=== PATIENT | female | born 1975 | race Caucasian/White ===

== ENCOUNTER 2016-06-05 09:04 | Emergency (ER) | payer SELFPAY ==
--- NOTE | 2016-06-05 09:46 | Emergency Department Report ---
Entered by TRACY MARTINS, acting as scribe for NIC BARRAZA PA. Chief Complaint: Abdominal Pain Stated Complaint: ABD PAIN - HPI History of Present Illness: Patient presents to the ED c/o RUQ pain, nausea, and vomiting. Denies diarrhea and back pain. Took Nexium. - ROS Review of Systems: All system are negative unless stated in HPI above. - Exam Vital Signs: Vital Signs 06/05/16 09:16 Temperature 97.7 F Pulse Rate 74 Respiratory 20 Rate Blood Pressure 115/67 O2 Sat by Pulse 100 Oximetry Physical Exam: General: well nourished, well deverloped, nontoxic in appearance, in no acute distress Abdomen: Normal bowel sounds in all quadrants. Soft. TTP in RUQ to epigastric area Back:no CVA tenderness MSE screening note: Focused history and physical exam performed. Due to findings the following was ordered: ED Medical Decision Making - Medical Decision Making Medical decision making: Patient seen by provider in triage area. Appropriate protocol activated and patient to main ED to be seen by ED provider ED Disposition for MSE Condition: Stable Instructions: Abdominal Pain (ED) This documentation as recorded by the scribe,TRACY MARTINS,accurately reflects the service I personally performed and the decisions made by me,NIC BARRAZA PA.
[2016-06-05 10:15] LABS: Alanine Aminotransferase 49 units/L (7-56); Albumin/Globulin Ratio 1.3 %; Alkaline Phosphatase 95 units/L (35-129); Anion Gap 15 mmol/L; Bilirubin,Total 0.5 mg/dL (0.1-1.2); Blood Urea Nitrogen 12 mg/dL (7-17); Calcium 8.8 mg/dL (8.4-10.2); Carbon Dioxide 25 mmol/L (22-30); Chloride 100.8 mmol/L (98-107); Glucose 93 mg/dL (65-100); Lipase 36 units/L (13-60); Potassium 3.4 mmol/L (3.6-5.0); Sodium 137 mmol/L (137-145); Total Protein 7.1 g/dL (6.3-8.2)
[2016-06-05 10:36] LABS: Basophils % (Auto) 0.3 % (0.0-1.8); Eosinophils % (Auto) 0.5 % (0.0-4.3); Hemoglobin 13.1 gm/dl (10.1-14.3); Mean Corpuscular HGB Conc 33 % (30-34); Mean Corpuscular Hemoglobin 29 pg (28-32); Mean Corpuscular Volume 88 fl (79-97); Platelet Count 286 K/mm3 (140-440); Red Blood Count 4.52 M/mm3 (3.65-5.03); Red Cell Distribution Width 13.7 % (13.2-15.2); White Blood Count 10.1 K/mm3 (4.5-11.0)
[2016-06-05] MEDS ORDERED: NACL 0.9% 1000 ML 1,000 ML IV ONE (10:43)
[2016-06-05] MEDS ORDERED: MORPHINE IV ONE ×2 (10:43→12:49)
[2016-06-05] MEDS ORDERED: ZOFRAN IV ONE (10:43)
[2016-06-05 10:46] LABS: Bacteria,Urine 1+ /HPF (Negative); Bilirubin,Urine NEG (Negative); Blood,Urine NEG (Negative); Ketones,Urine NEG (Negative); Leukocyte Esterase,Urine NEG (Negative); Mucus,Urine 1+ /HPF; Nitrite,Urine NEG (Negative); Protein,Urine <15 mg/dL mg/dL (Negative); Urobilinogen,Urine < 2.0 mg/dL (<2.0)
--- NOTE | 2016-06-05 10:47 | Emergency Department Report ---
ED Abdominal Pain HPI - General Chief Complaint: Abdominal Pain Stated Complaint: ABD PAIN Time Seen by Provider: 06/05/16 09:30 Source: patient Mode of arrival: Ambulatory Limitations: No Limitations - History of Present Illness Initial Comments: 41-year-old female presents to the emergency department complaining of right upper abdominal pain. Patient states she has been having this pain intermittently for over one month. Over the past 3 days, the pain has been constant. Patient describes a "deep" pain in her upper abdomen that does not radiate. She reports nausea and vomiting when trying to eat. There has been no fever. She denies diarrhea. There are no other complaints. MD Complaint: abdominal pain -: Gradual, days(s) (3) Location: RUQ Radiation: none Migration to: no migration Severity: moderate Severity scale (0 -10): 6 Quality: dull Consistency: constant Improves With: nothing Worsens With: nothing Associated Symptoms: nausea, vomiting - Related Data Previous Rx's Medication Instructions Recorded Last Taken Type HYDROcodone/APAP 5-325 [[place] 1 each PO Q6HR PRN #30 tablet 06/05/16 Unknown Rx 5/325] Levofloxacin [Levaquin TAB] 500 mg PO QDAY #10 tablet 06/05/16 Unknown Rx Allergies Allergy/AdvReac Type Severity Reaction Status Date / Time No Known Allergies Allergy Unverified 06/05/16 09:16 ED Review of Systems ROS: Stated complaint: ABD PAIN Other details as noted in HPI Comment: All other systems reviewed and negative Gastrointestinal: abdominal pain, nausea, vomiting ED Past Medical Hx - Past Medical History Previous Medical History?: Yes Additional medical history: Vaginal delivery x 1 - Surgical History Past Surgical History?: Yes Additional Surgical History: x 1, Tubal ligation - Family History Family history: no significant - Social History Smoking Status: Never Smoker Substance Use Type: Non Opiate Pain - Medications Home Medications: Home Medications Medication Instructions Recorded Confirmed Last Taken Type HYDROcodone/APAP 5-325 [[place] 1 each PO Q6HR PRN #30 tablet 06/05/16 Unknown Rx 5/325] Levofloxacin [Levaquin TAB] 500 mg PO QDAY #10 tablet 06/05/16 Unknown Rx ED Physical Exam - General Limitations: No Limitations General appearance: alert, in no apparent distress - Head Head exam: Present: atraumatic, normocephalic - Eye Eye exam: Present: normal appearance, PERRL, EOMI - ENT ENT exam: Present: normal exam, normal orophraynx, mucous membranes moist - Neck Neck exam: Present: normal inspection, full ROM. Absent: tenderness - Respiratory Respiratory exam: Present: normal lung sounds bilaterally. Absent: respiratory distress - Cardiovascular Cardiovascular Exam: Present: regular rate, normal rhythm, normal heart sounds - GI/Abdominal GI/Abdominal exam: Present: soft, tenderness (mild right upper quadrant tenderness to palpation with deep palpation.), normal bowel sounds. Absent: distended, guarding, rebound - Extremities Exam Extremities exam: Present: normal inspection, full ROM. Absent: tenderness - Back Exam Back exam: Present: normal inspection, full ROM. Absent: tenderness - Neurological Exam Neurological exam: Present: alert, oriented X3. Absent: motor sensory deficit - Skin Skin exam: Present: warm, dry, intact ED Course Vital Signs 06/05/16 09:16 Temperature 97.7 F Pulse Rate 74 Respiratory 20 Rate Blood Pressure 115/67 O2 Sat by Pulse 100 Oximetry ED Medical Decision Making - Lab Data Result diagrams: 06/05/16 09:31 06/05/16 09:31 - Radiology Data Radiology results: report reviewed Right upper quadrant ultrasound reveals cholelithiasis with gallbladder sludge. There are no other acute findings. - Medical Decision Making Lab and imaging results reviewed and discussed with the patient. I have also spoke with Dr. Raphael, general surgery. At his request, the patient will be placed on oral Levaquin. She'll be discharged home at this time with oral pain medication to follow-up in his office later this week. Plan was discussed with the patient, who agrees. - Differential Diagnosis gastritis, pancreatitis, cholecystitis, cholelithiasis Critical care attestation.: If time is entered above; I have spent that time in minutes in the direct care of this critically ill patient, excluding procedure time. ED Disposition Clinical Impression: Cholelithiasis Qualifiers: Cholelithiasis location: gallbladder Cholecystitis presence: without cholecystitis Biliary obstruction: without biliary obstruction Qualified Code(s) : K80.20 - Calculus of gallbladder without cholecystitis without obstruction Disposition: DISCHARGED TO HOME OR SELFCARE Is pt being admited?: No Condition: Stable Instructions: Biliary Colic (ED) Prescriptions: HYDROcodone/APAP 5-325 [[place] 5/325] 1 each PO Q6HR PRN #30 tablet PRN Reason: Pain Levofloxacin [Levaquin TAB] 500 mg PO QDAY #10 tablet Referrals: TIM RAPHAEL MD [Staff Physician] - 3-5 Days Time of Disposition: 12:52
--- NOTE | 2016-06-05 12:22 | Ultrasound Report ---
ULTRASOUND ABDOMEN LIMITED INDICATION: RUQ pain. COMPARISON: None similar at this institution. FINDINGS: Right upper quadrant sonography demonstrates diffusely echogenic liver with grossly preserved contours. Limited sonographic penetration. No pericholecystic fluid with gallbladder wall thickness of 2.7 mm. However, few small, shadowing echogenicities measuring 6-7 mm noted towards the gallbladder fundus. Mild gallbladder sludge and mobile gallstones also not excluded as on image 64, amongst others. Positive sonographic Patiño's sign. Common bile duct is 4 mm. Normal imaged pancreas, though tail obscured due to bowel gas. Unremarkable visualized IVC and nonaneurysmal abdominal aorta. Nonhydronephrotic right kidney, 10.7 x 4.5 x 5.4 cm with cortical thickness of 1.3 cm. CONCLUSION: 1. Cholelithiasis and possible gallbladder sludge with positive sonographic Patiño's sign. Clinical/laboratory correlation for acute cholecystitis maybe obtained in an appropriate setting. 2. Fatty liver. Thank you for the opportunity to participate in this patient's care.
[2016-06-05] MEDS ORDERED: ZOFRAN ODT PO ONE (14:43)
[2016-06-05 15:28] VITALS: BP 123/59
== END 2016-06-05 15:29 | disposition home or self-care (01) ==
LOC: ED 09:04
DX: K80.20 Calculus of gallbladder without cholecystitis without obstruction (principal); Z98.51 Tubal ligation status
CPT/HCPCS: 36415; 76705; 80053; 81001; 81025; 83690; 85025; 96361; 96374; 96375; 96376; 99284; J2270; J2405; J7030; Q0162

== ENCOUNTER 2016-06-06 00:59 | Inpatient (IN) | payer OTHER ==
[2016-06-06] MEDS ORDERED: NACL 0.9% 1000 ML 1,000 ML IV ONE (06:23)
[2016-06-06] MEDS ORDERED: MORPHINE IV ONE ×2 (06:23→08:20)
[2016-06-06] MEDS ORDERED: ZOFRAN IV ONE (06:23)
[2016-06-06 07:28] LABS: Basophils % (Auto) 0.4 % (0.0-1.8); Eosinophils % (Auto) 0.3 % (0.0-4.3); Hematocrit 38.2 % (30.3-42.9); Hemoglobin 12.6 gm/dl (10.1-14.3); Mean Corpuscular HGB Conc 33 % (30-34); Mean Corpuscular Hemoglobin 29 pg (28-32); Mean Corpuscular Volume 88 fl (79-97); Platelet Count 274 K/mm3 (140-440); Red Blood Count 4.36 M/mm3 (3.65-5.03); Red Cell Distribution Width 13.9 % (13.2-15.2); White Blood Count 7.2 K/mm3 (4.5-11.0)
[2016-06-06 07:45] LABS: Alanine Aminotransferase 613 units/L (7-56); Albumin 3.9 g/dL (3.9-5); Albumin/Globulin Ratio 1.2 %; Alkaline Phosphatase 174 units/L (35-129); Anion Gap 16 mmol/L; Bilirubin,Direct 2.4 mg/dL (0-0.2); Bilirubin,Indirect 0.6 mg/dL; Blood Urea Nitrogen 8 mg/dL (7-17); Calcium 8.8 mg/dL (8.4-10.2); Carbon Dioxide 24 mmol/L (22-30); Chloride 102.8 mmol/L (98-107); Glucose 90 mg/dL (65-100); Lipase 36 units/L (13-60); Sodium 139 mmol/L (137-145); Total Protein 7.1 g/dL (6.3-8.2)
--- NOTE | 2016-06-06 08:29 | Admit Criteria Form ---
Admission Criteria Documentation: GALLBLADDER OR BILE DUCT INFLAMMATION OR STONE Clinical Indications for Admission to Inpatient Care ( Place 'X' for any and all applicable criteria): Admission is indicated for patients with ANY ONE of the following(1)(2)(3)(4)(5) : [ ]I. Acute cholecystitis as indicated by ALL of the following: [ ]a) Right upper quadrant pain, mass, or tenderness [ ]b) Systemic signs of inflammation indicated by ANY ONE of the following: [ ]i) Fever [ ]ii) C-reactive protein level greater than 10 mg/L (95 nmol/L) [ ]iii) White blood cell count greater than 10,000/mm3 (10 x109/L) or less than 4000/mm3 (4 x109/L) [X ]II. Inpatient admission required rather than observation care (Also use Gallbladder or Bile Duct Inflammation or Stone: Observation Care as appropriate) because of ANY ONE of the following: [ ]a) Common bile duct obstruction diagnosed [X ]b) Vomiting that is severe or persistent [ ]c) Severe pain requiring acute inpatient management [ ]d) Signs of intestinal obstruction or peritonitis [A] [ ]e) Severe electrolyte abnormalities requiring inpatient care [ ]f) Absent bowel sounds with complete ileus(8) [ ]g) Hemodynamic instability [ ]h) High fever or infection requiring inpatient admission as indicated by ANY ONE of the following (9): [ ]1) Appropriate outpatient or observation care antimicrobial Treatment. unavailable, not effective, or not feasible [ ]2) Temperature greater than 104.9 degrees F (40.5 degrees C) (oral) [ ]3) Temperature greater than 103.1 degrees F (39.5 degrees C) (oral) or less than 96.8 degrees F (36 degrees C) (rectal) that does not respond to all emergency treatment measures [ ]4) Documented bacteremia [ ]i) IV fluid to replace significant ongoing losses (greater than 3 L/m2 per day) [ ]j) Percutaneous or open drainage (eg, abscess, biliary tract) procedures [ ]k) Immediate inpatient surgery [ ]l) Other condition, treatment or monitoring requiring inpatient admission [ ]III. Acute cholangitis as indicated by ALL of the following(9)(10): [ ]a) Systemic signs of inflammation indicated by ANY ONE of the following: [ ]i) Fever [ ]ii) C-reactive protein level greater than 10 mg/L (95 nmol /L) [ ]iii) White blood cell count greater than 10,000/mm3 (10 x109/L) or less than 4000/mm3 (4 x109/L) [ ]b) Evidence of common bile duct disease indicated by ANY ONE of the following: [ ]i) Total serum bilirubin level greater than or equal to 2 mg/dL (34 micromoles/L) [ ]ii) Liver function test (alkaline phosphatase (ALP), r- glutamyltransferase (GGT), aspartate aminotransferase (AST), or alanine aminotransferase (ALT)) greater than 1.5 times the upper limit of normal[B] [ ]iii) Hepatobiliary imaging showing biliary dilatation or evidence of etiology (eg, stricture, stone, previously placed stent) Extended stay beyond goal length of stay may be needed for (1)(2)): [ ]a) Bacteremia or Hemodynamic instability [ ]b) Cholecystectomy [ ]c) Other surgical procedure(24) [ ]d) Percutaneous or endoscopic ultrasound-guided cholecystostomy The original [facility] content created by [facility] has been revised. The portions of the content which have been revised are identified through the use of italic text or in bold, and [facility] has neither reviewed nor approved the modified material. All other unmodified content is copyright [facility]. Please see references footnoted in the original [facility] edition 2016 Admission Criteria Met: Yes
--- NOTE | 2016-06-06 10:00 | Ultrasound Report ---
RIGHT UPPER QUADRANT ULTRASOUND: HISTORY: Right upper quadrant abdominal pain. Technique: Transabdominal ultrasound imaging with Doppler interrogation. FINDINGS: Compared to the ultrasound performed yesterday. A mild degree of sludge and a few shadowing gallstones are identified within the gallbladder. The gallbladder is not distended. Gallbladder wall thickness is normal measuring 2 mm. The common bile duct measures 5.5 mm in diameter. No choledocholithiasis is appreciated. Diffuse fatty infiltration of the liver is again noted. No focal liver mass or perihepatic ascites. The right kidney measures 10.1 cm. No focal abnormality. The proximal aorta is normal caliber measuring 1.8 cm. The pancreas is obscured. IMPRESSION: Cholelithiasis. No convincing secondary findings of acute cholecystitis. HIDA scan may prove useful in this patient if acute cholecystitis is suspected. Fatty liver.
--- NOTE | 2016-06-06 11:09 | Emergency Department Report ---
ED Abdominal Pain HPI - General Chief Complaint: Abdominal Pain Stated Complaint: STOMACH PAIN/VOMITING/FEVER Time Seen by Provider: 06/06/16 06:21 Source: patient Mode of arrival: Ambulatory Limitations: No Limitations - History of Present Illness Initial Comments: This is patient was seen at this facility yesterday. She has persistent right upper quadrant pain for the past few days. She is unable to eat secondary to vomiting. She denies fever or chills. She was diagnosed yesterday with biliary colic. MD Complaint: abdominal pain -: days(s) Location: RUQ Radiation: none Migration to: no migration Severity scale (0 -10): 6 Quality: aching Consistency: constant Improves With: nothing Worsens With: nothing Associated Symptoms: nausea, vomiting - Related Data Previous Rx's Medication Instructions Recorded Last Taken Type HYDROcodone/APAP 5-325 [[place] 1 each PO Q6HR PRN #30 tablet 06/05/16 Unknown Rx 5/325] Levofloxacin [Levaquin TAB] 500 mg PO QDAY #10 tablet 06/05/16 Unknown Rx Promethazine [Phenergan TAB] 25 mg PO Q6HR PRN #30 tab 06/05/16 Unknown Rx Allergies Allergy/AdvReac Type Severity Reaction Status Date / Time No Known Allergies Allergy Unverified 06/05/16 09:16 ED Review of Systems ROS: Stated complaint: STOMACH PAIN/VOMITING/FEVER Other details as noted in HPI Constitutional: denies: chills, fever Eyes: denies: eye pain, eye discharge, vision change ENT: denies: ear pain, throat pain Respiratory: denies: cough, shortness of breath, wheezing Cardiovascular: denies: chest pain, palpitations Endocrine: no symptoms reported Gastrointestinal: as per HPI, abdominal pain, nausea, vomiting. denies: diarrhea Genitourinary: denies: urgency, dysuria, discharge Musculoskeletal: denies: back pain, joint swelling, arthralgia Skin: denies: rash, lesions Neurological: denies: headache, weakness, paresthesias Psychiatric: denies: anxiety, depression Hematological/Lymphatic: denies: easy bleeding, easy bruising ED Past Medical Hx - Past Medical History Previous Medical History?: No Additional medical history: Vaginal delivery x 1 - Surgical History Past Surgical History?: Yes Additional Surgical History: x 1, Tubal ligation - Social History Smoking Status: Never Smoker Substance Use Type: None - Medications Home Medications: Home Medications Medication Instructions Recorded Confirmed Last Taken Type HYDROcodone/APAP 5-325 [[place] 1 each PO Q6HR PRN #30 tablet 06/05/16 06/06/16 Unknown Rx 5/325] Levofloxacin [Levaquin TAB] 500 mg PO QDAY #10 tablet 06/05/16 06/06/16 Unknown Rx Promethazine [Phenergan TAB] 25 mg PO Q6HR PRN #30 tab 06/05/16 06/06/16 Unknown Rx ED Physical Exam - General Limitations: No Limitations General appearance: alert, in no apparent distress - Head Head exam: Present: atraumatic, normocephalic - Eye Eye exam: Present: normal appearance - ENT ENT exam: Present: normal exam, mucous membranes moist - Neck Neck exam: Present: normal inspection - Respiratory Respiratory exam: Present: normal lung sounds bilaterally. Absent: respiratory distress - Cardiovascular Cardiovascular Exam: Present: regular rate, normal rhythm. Absent: systolic murmur, diastolic murmur, rubs, gallop - GI/Abdominal GI/Abdominal exam: Present: soft, tenderness (right upper quadrant), normal bowel sounds. Absent: distended, guarding, rebound, rigid, organomegaly, mass, bruit, pulsatile mass, hernia - Extremities Exam Extremities exam: Present: normal inspection - Back Exam Back exam: Present: normal inspection - Neurological Exam Neurological exam: Present: alert, oriented X3, CN II-XII intact. Absent: motor sensory deficit - Psychiatric Psychiatric exam: Present: normal affect, normal mood - Skin Skin exam: Present: warm, dry, intact, normal color. Absent: rash ED Course Vital Signs 06/06/16 06/06/16 06/06/16 01:12 04:33 06:39 Temperature 98.9 F 97.8 F Pulse Rate 18 L 60 Respiratory 18 18 Rate Blood Pressure 115/72 Blood Pressure 102/63 [Left] O2 Sat by Pulse 98 98 98 Oximetry 06/06/16 08:00 Temperature Pulse Rate 62 Respiratory 18 Rate Blood Pressure Blood Pressure 104/61 [Left] O2 Sat by Pulse 97 Oximetry - Reevaluation(s) Reevaluation #1: Discussed with Dr. [place]. Patient has been admitted for further care and evaluation and surgical consultation. 06/06/16 11:08 ED Medical Decision Making - Lab Data Result diagrams: 06/06/16 07:04 06/06/16 07:04 Laboratory Results - last 24 hr 06/06/16 06/06/16 07:04 07:04 WBC 7.2 RBC 4.36 Hgb 12.6 Hct 38.2 MCV 88 MCH 29 MCHC 33 RDW 13.9 Plt Count 274 Lymph % (Auto) 18.0 [place] % (Auto) 6.5 Eos % (Auto) 0.3 Baso % (Auto) 0.4 Lymph # 1.3 [place] # 0.5 Eos # 0.0 Baso # 0.0 Seg Neutrophils % 74.8 H Seg Neutrophils # 5.4 Sodium 139 Potassium 4.0 Chloride 102.8 Carbon Dioxide 24 Anion Gap 16 BUN 8 Creatinine 0.4 L Estimated GFR > 60 BUN/Creatinine Ratio 20.00 Glucose 90 Calcium 8.8 Total Bilirubin 3.0 H Direct Bilirubin 2.4 H Indirect Bilirubin 0.6 AST 671 H ALT 613 H Alkaline Phosphatase 174 H Total Protein 7.1 Albumin 3.9 Albumin/Globulin Ratio 1.2 Lipase 36 - Radiology Data Radiology results: report reviewed interpreted by me: Gallstones. CBD is 5.5. GB wall is 2. No evidence of cholecystitis. Critical care attestation.: If time is entered above; I have spent that time in minutes in the direct care of this critically ill patient, excluding procedure time. ED Disposition Clinical Impression: Biliary obstruction Cholelithiasis Qualifiers: Cholelithiasis location: gallbladder Cholecystitis presence: without cholecystitis Biliary obstruction: with biliary obstruction Qualified Code(s): K80.21 - Calculus of gallbladder without cholecystitis with obstruction Disposition: OP ADMITTED IP TO THIS HOSP Is pt being admited?: Yes Does the pt Need Aspirin: No Condition: Stable Instructions: Abdominal Pain (ED) Referrals: PRIMARY CARE, [Primary Care Provider] - 3-5 Days Time of Disposition: 11:09
[2016-06-06] MEDS ORDERED: MORPHINE IV PRN (15:46)
--- NOTE | 2016-06-06 16:08 | History and Physical Report ---
History of Present Illness Date of examination: 06/06/16 Date of admission: 06/06/16 11:03 Chief complaint: Abdominal pain, nausea and vomiting. 3 day duration History of present illness: Patient is a 41-year-old lady who presented emergency department with severe epigastric pain with nausea vomiting. Vomited about 10 times. Vomitus was yellowish in color. Denies any fever. No hematemesis or melena. Abdominal pain is dull in nature. Radiating to the back. Denies any any fever or chills. Urine was very yellow. Total bilirubin was found to be severely elevated as well as the liver enzymes. Abdominal Ultrasound that showed multiple gallbladder stones without evidence of cholecstitis. However with a sudden elevation in the total bilirubin and liver enzymes admission was requested. Patient was still vomiting also Past History Past Medical History: other (epigastric pain) Past Surgical History: Social history: lives with family. denies: smoking, alcohol abuse, IV drug use Family history: no significant family history Medications and Allergies Allergies Allergy/AdvReac Type Severity Reaction Status Date / Time No Known Allergies Allergy Unverified 06/05/16 09:16 Home Medications Medication Instructions Recorded Confirmed Last Taken Type HYDROcodone/APAP 5-325 [[place] 1 each PO Q6HR PRN #30 tablet 06/05/16 06/06/16 Unknown Rx 5/325] Levofloxacin [Levaquin TAB] 500 mg PO QDAY #10 tablet 06/05/16 06/06/16 Unknown Rx Promethazine [Phenergan TAB] 25 mg PO Q6HR PRN #30 tab 06/05/16 06/06/16 Unknown Rx Active Meds: Active Medications Dextrose/Sodium Chloride (D5/0.45ns) 1,000 mls @ 150 mls/hr IV DIRECT YASH Morphine Sulfate (Morphine) 2 mg IV Q4H PRN PRN Reason: Pain, Moderate (4-6) Ondansetron HCl (Zofran) 4 mg IV Q4H PRN PRN Reason: Nausea And Vomiting Review of systems Constitutional: Well Nouridhed and Well developed. Head: NC/ AT Eyes: Denies any visual impairments. No discharge from the eyes Nose: Denies any rhinorrhea or epistaxis Throats: Denies any post nasal drainage. Ears: Denies any hearing deficits Cardiovascular system: Denies any chest pain, shortness of breath, orthopnea, paroxysmal nocturnal dyspnea, or palpitation. Respiratory system: Denies any cough, difficulty breathing, wheezing, pleuritic chest pain, Gastrointestinal system: Has abdominal pain, nausea vomiting. No hematemesis or melena. Neurological system: Denies any headache, slurred speech, facial droop, lateralizing weakness Genitalia system: Denies any dysuria, urinary frequency or urgency, urethral discharge Skin: No rashes, hyperpigmented spots. Hematological: Denies any cervical tenderness hemorrhages or petechia. Immunological: Denies any multiple septic spots, Lymphatic: Denies any generalized lymphadenopathy. Endocrine: Denies any polyuria, polydipsia, polyphagia. No heat or cold intolerance. Musculoskeletal system: No joint pain or swelling. Psych: No visual, tactile, auditory or hallucination Exam - Constitutional Vitals: Temp Pulse Resp BP Pulse Ox 97.8 F 60 16 107/67 99 06/06/16 06:39 06/06/16 13:00 06/06/16 13:00 06/06/16 13:00 06/06/16 13:00 General appearance: Present: no acute distress, well-nourished - EENT Eyes: Present: PERRL ENT: hearing intact, clear oral mucosa - Neck Neck: Present: supple, normal ROM - Respiratory Respiratory effort: normal Respiratory: bilateral: CTA - Cardiovascular Heart Sounds: Present: S1 & S2. Absent: rub, click - Extremities Extremities: pulses symmetrical, No edema Peripheral Pulses: within normal limits - Abdominal General gastrointestinal: Present: soft, tender, non-distended, normal bowel sounds Female genitourinary: Present: normal - Integumentary Integumentary: Present: clear, warm, dry - Musculoskeletal Musculoskeletal: gait normal, strength equal bilaterally - Psychiatric Psychiatric: appropriate mood/affect, intact judgment & insight - Neurologic Neurologic: CNII-XII intact, moves all extremities Results - Labs CBC & Chem 7: 06/06/16 07:04 06/06/16 07:04 - Imaging and Cardiology US - abdomen: report reviewed Assessment and Plan 1. Acute epigastric pain Likely secondary to cholelithiasis per abdominal ultrasound. Patient will placed on IV fluid and IV morphine. 2. Cholelithiasis Abdominal ultrasound did not indicate any evidence of acute cholecystitis. However as patient is having abdominal pain. HIDA scan ordered. 3. Nausea vomitin IV morphine, IV Zofran. IV fluid. 4. Abnormal liver enzymes Pattern is likely that of Biliary obastruction from a stone. GI consult obtained for possible ERCP 5. DVT prophylaxis with heparin and GI prophylaxis with Protonix. Spent 35 minutes was spent during his admission process in direct patient care and review of laboratory and radiological data as well as explaining the care plan to patient.
[2016-06-06] MEDS: D5/0.45NS 1,000 ML IV SCH (18:00)
--- NOTE | 2016-06-06 19:16 | Magnetic Resonance Report ---
FINAL REPORT PROCEDURE: MR ABDOMEN MRCP TECHNIQUE: Magnetic resonance cholangiopancreatography of the biliary system was performed without paramagnetic contrast. The original data was reconstructed in 3-dimensions. HISTORY: Abdomen pain COMPARISON: No prior studies are available for comparison. FINDINGS: There likely very tiny gallstones without evidence of cholecystitis. Common bile duct is normal in size measuring 4.6 millimeters in diameter. There appear to be at least 2 tiny stones within the distal common bile duct measuring approximately 3 millimeters in size each. No intrahepatic biliary ductal dilation is seen. Cystic duct appears to have a uniform beaded appearance without dilation. Changes do not appear likely to represent cholangiocarcinoma. Findings may be normal variant appearance but correlation with ERCP is recommended. Pancreas displays no abnormalities. Spleen is normal in size. No focal hepatic abnormality is seen. Adrenal glands appear normal. Probable small benign cysts are seen in the kidneys. IMPRESSION: Tiny gallstones are seen with at least 2 tiny common bile duct stones. However, common bile duct is normal in size and no intrahepatic biliary ductal dilation is seen. There is a uniform beaded appearance of the common bile duct which is of uncertain significance. The duct is not dilated. Correlation with ERCP is recommended to assure this is not an artifactual appearance.
[2016-06-06] MEDS: LEVAQUIN 750MG/150ML 750 MG/150 ML BAG IV SCH (21:40)
[2016-06-06] MEDS: PROTONIX IV SCH (21:41)
[2016-06-06] MEDS: ZOFRAN IV PRN (23:16)
--- NOTE | 2016-06-07 07:34 | Consultation ---
HISTORY OF PRESENT ILLNESS: This patient presented to the Emergency Room 2 days ago because of pain in the epigastrium. Apparently, she had some x-rays. She was discharged home to come back last night with same pain, nausea, and vomiting. Apparently, she was found to have gallbladder disease with stones. The bilirubin was in the range of 3 and the lipase is normal. Her white count was only 11,000. I was asked to evaluate her from a general surgical point of view, which she never had this before. This has been going on for about a month now. SOCIAL HISTORY: She had two children. She does not smoke nor does she drink alcohol. ALLERGIES: Allergic reactions were mainly to cephalexin, lidocaine, and to mushrooms as well. PHYSICAL EXAMINATION: GENERAL: Well-preserved and short-statured Latin-Nepalese female. She is in no distress. HEAD AND NECK: Negative. CHEST: Clear. HEART: Sounds normal to me. ABDOMEN: Protuberant and soft. [id number] tenderness in the epigastrium with the right upper quadrant. EXTREMITIES: Showed no significant edema. IMPRESSION AND PLAN: Right upper quadrant pain with hyperbilirubinemia, increased alkaline phosphatase, and evidence of stones in the gallbladder. We are going to pursue that with HIDA with MRCP and I was under the impression that Dr. Palacio gastroenterology see her go from there. I did indicate to the patient that eventually she would need an operation, but we will wait on all of these results and then we will go from there. JOB# [id number] ASHLYN/MARIA ELENA
--- NOTE | 2016-06-07 08:25 | Consultation ---
INDICATION: 1. Abdominal pain. 2. Nausea and vomiting. HISTORY: The patient is a 41-year-old female presents for upper GI symptoms. The patient reports over the last week she has been having progressive epigastric pain with nausea and vomiting worse with eating. She reports it became so pronounced over the last 2-3 days she came to the Emergency Room. She reports no history of gallbladder disease. Denies any significant NSAIDs or aspirin. Denies any lower GI symptoms including diarrhea, constipation, or rectal bleeding. The patient subsequently came to Emergency Room where ultrasound showed gallstones and increased liver function tests. She subsequently was admitted and GI consulted. PAST MEDICAL HISTORY: Negative. MEDICATIONS: See chart. ALLERGIES: No known drug allergies. SOCIAL HISTORY: Denies alcohol, tobacco, or drug abuse. FAMILY HISTORY: Negative for colon cancer. REVIEW OF SYSTEMS: GENERAL: Reports mild weakness. HEENT: No visual complaints or tinnitus. PULMONARY: No shortness of breath. No cough. No chest pain. GASTROINTESTINAL: Reports nausea and vomiting. All points of 13-point review of systems otherwise negative. PHYSICAL EXAMINATION: VITAL SIGNS: Temperature of 99.1, pulse 70, respirations 16, and blood pressure 104/64. GENERAL: Fairly nourished female, in no acute distress. HEENT: Pupils equal, round, and reactive to light and accommodation. Extraocular muscles intact. PULMONARY: Clear to auscultation bilaterally. CARDIOVASCULAR: Regular rhythm. Normal S1 and S2. ABDOMEN: Positive bowel sounds, soft, and mild epigastric pain. No guarding. No rebound. SKIN: No obvious rashes. LABORATORY DATA: Pertinent for white count of 7.2, hemoglobin and hematocrit of 12.6 and 38.2, and platelet count of 274,000. Chem-7 within normal limits. LFTs pertinent for AST and ALT of 671 and 613, alkaline phosphatase of 174, and total bilirubin of 3.0. Ultrasound showed gallstones. ASSESSMENT: A 41-year-old female presents with recent epigastric upper abdominal pain with nausea and vomiting after eating. Ultrasound showing gallstones and increased liver function test. Possible gallbladder related versus peptic ulcer versus other. Management as noted below. PLAN: 1. MRCP to rule out choledocholithiasis. 2. We will review ultrasound. 3. Clear liquid diet for now. 4. Antiemetics and pain medications per primary team. 5. Consider EGD. 6. We would recommend surgical consult. 7. Further recommendation based on progress and results of the above. JOB# [id number] [facility]/NTS
[2016-06-07] MEDS: PROTONIX IV SCH (11:26)
[2016-06-07] MEDS ORDERED: FLUARIX QUAD 2016-2017(36 MOS+) IM ONE (12:00)
--- NOTE | 2016-06-07 12:11 | Nuclear Medicine Report ---
HIDA WITHOUT CCK INDICATION: Abnormal LFTs, cholelithiasis. Right upper quadrant pain. COMPARISON: None similar. FINDINGS: Dynamic right upper quadrant imaging performed in the anterior projection over 4 hours following uneventful intravenous administration of 5 mCi of Technetium 99m Choletec. Prompt and homogenous hepatic radiotracer uptake noted, though without subsequent washout. No biliary tree/gallbladder or bowel visualization. CONCLUSION: Gallbladder nonvisualization/cholecystitis, as described. Please correlate. Thank you for the opportunity to participate in this patient's care.
[2016-06-07] MEDS: D5/0.45NS 1,000 ML IV SCH (13:16)
[2016-06-07] MEDS ORDERED: NACL 0.9% 1000 ML 1,000 ML IV SCH (14:00)
[2016-06-07] MEDS ORDERED: WATER FOR IRRIG STERILE IR ONE ×2 (14:10→15:13)
--- NOTE | 2016-06-07 14:33 | Anesthesia Consultation ---
Anesthesia Consult and Med Hx Date of service: 06/07/16 - Airway Anesthetic Teeth Evaluation: Good ROM Head & Neck: Adequate Mental/Hyoid Distance: Adequate Mallampati Class: Class II Intubation Access Assessment: Probably Good - Pre-Operative Health Status ASA Pre-Surgery Classification: ASA2 Proposed Anesthetic Plan: MAC - Pulmonary Hx Asthma: No COPD: No Hx Pneumonia: No - Gastrointestinal Hx Gastroesophageal Reflux Disease: Yes (nausea/vomiting) - Endocrine Hx End Stage Renal Disease: No Hx Liver Disease: Yes (choledocholithiasis) - Other Systems Hx Cancer: No
--- NOTE | 2016-06-07 14:33 | Anesthesia Day of Surgery ---
Anesthesia Day of Surgery - Day of Surgery Patient Examined: Yes Patient H&P Reviewed: Yes Patient is NPO: Yes
[2016-06-07] MEDS ORDERED: DILAUDID ONE (15:24)
[2016-06-07] MEDS ORDERED: DIPRIVAN 10 MG/ML IV ONE ×2 (15:24)
[2016-06-07] MEDS ORDERED: VERSED ONE (15:24)
[2016-06-07] MEDS ORDERED: GLUCAGEN ONE (15:25)
[2016-06-07] MEDS ORDERED: GLUCAGEN IV ONE (16:00)
--- NOTE | 2016-06-07 16:30 | Post Anesthesia Evaluation ---
- Post Anesthesia Evaluation Patient Participated: Yes Airway Patent: Yes Stable Respiratory Function: Yes Nausea/Vomiting: No Temp > 96.8F: Yes Pain Manageable: Yes Adequeate Hydration: Yes Anesthesia Complications: No
--- NOTE | 2016-06-07 16:46 | Post Operative Note ---
Pre-op diagnosis: biliary stones Findings: ERCP: nl pancreatogram - cholangiogram w/. fillign defect x 2 - sphinterotomy - stone x 2 removed Procedure: ERCP Anesthesia: MAC Surgeon: RAMIRO CASTILLO Estimated blood loss: none Specimen disposition: to lab Condition: stable Disposition: floor
[2016-06-07] MEDS: ZOFRAN IV PRN (17:03)
[2016-06-07] MEDS: LEVAQUIN 750MG/150ML 750 MG/150 ML BAG IV SCH (18:00)
--- NOTE | 2016-06-07 18:02 | Progress Note ---
History Interval history: s/p ERCP with sphinterotomy and 2 stone removal Hospitalist Physical - Constitutional Vitals: Temp Pulse Resp BP Pulse Ox 98.7 F 66 16 118/72 96 06/07/16 17:30 06/07/16 17:30 06/07/16 17:30 06/07/16 17:30 06/07/16 17:30 General appearance: Present: no acute distress, well-nourished Results - Labs CBC & Chem 7: 06/06/16 07:04 06/06/16 07:04 Labs: Laboratory Last Values WBC 7.2 K/mm3 (4.5-11.0) 06/06/16 07:04 RBC 4.36 M/mm3 (3.65-5.03) 06/06/16 07:04 Hgb 12.6 gm/dl (10.1-14.3) 06/06/16 07:04 Hct 38.2 % (30.3-42.9) 06/06/16 07:04 MCV 88 fl (79-97) 06/06/16 07:04 MCH 29 pg (28-32) 06/06/16 07:04 MCHC 33 % (30-34) 06/06/16 07:04 RDW 13.9 % (13.2-15.2) 06/06/16 07:04 Plt Count 274 K/mm3 (140-440) 06/06/16 07:04 Lymph % (Auto) 18.0 % (13.4-35.0) 06/06/16 07:04 [place] % (Auto) 6.5 % (0.0-7.3) 06/06/16 07:04 Eos % (Auto) 0.3 % (0.0-4.3) 06/06/16 07:04 Baso % (Auto) 0.4 % (0.0-1.8) 06/06/16 07:04 Lymph # 1.3 K/mm3 (1.2-5.4) 06/06/16 07:04 [place] # 0.5 K/mm3 (0.0-0.8) 06/06/16 07:04 Eos # 0.0 K/mm3 (0.0-0.4) 06/06/16 07:04 Baso # 0.0 K/mm3 (0.0-0.1) 06/06/16 07:04 Seg Neutrophils % 74.8 % (40.0-70.0) H 06/06/16 07:04 Seg Neutrophils # 5.4 K/mm3 (1.8-7.7) 06/06/16 07:04 Sodium 139 mmol/L (137-145) 06/06/16 07:04 Potassium 4.0 mmol/L (3.6-5.0) 06/06/16 07:04 Chloride 102.8 mmol/L (98-107) 06/06/16 07:04 Carbon Dioxide 24 mmol/L (22-30) 06/06/16 07:04 Anion Gap 16 mmol/L 06/06/16 07:04 BUN 8 mg/dL (7-17) 06/06/16 07:04 Creatinine 0.4 mg/dL (0.7-1.2) L 06/06/16 07:04 Estimated GFR > 60 ml/min 06/06/16 07:04 BUN/Creatinine Ratio 20.00 % 06/06/16 07:04 Glucose 90 mg/dL (65-100) 06/06/16 07:04 Calcium 8.8 mg/dL (8.4-10.2) 06/06/16 07:04 Total Bilirubin 3.0 mg/dL (0.1-1.2) H 06/06/16 07:04 Direct Bilirubin 2.4 mg/dL (0-0.2) H 06/06/16 07:04 Indirect Bilirubin 0.6 mg/dL 06/06/16 07:04 AST 671 units/L (5-40) H 06/06/16 07:04 ALT 613 units/L (7-56) H 06/06/16 07:04 Alkaline Phosphatase 174 units/L (35-129) H 06/06/16 07:04 Total Protein 7.1 g/dL (6.3-8.2) 06/06/16 07:04 Albumin 3.9 g/dL (3.9-5) 06/06/16 07:04 Albumin/Globulin Ratio 1.2 % 06/06/16 07:04 Lipase 36 units/L (13-60) 06/06/16 07:04
--- NOTE | 2016-06-07 21:38 | Operative Report ---
PROCEDURE: ERCP, sphincterotomy, and stone extraction. INDICATION: 1. Common bile duct stone. 2. Increased liver function test. MEDICATIONS: Propofol per [employer]. COMPLICATIONS: None. DESCRIPTION OF PROCEDURE: The patient was brought to procedure suite. The patient had the procedure discussed with her at length. All risks, complications, and benefits discussed after which the patient signed for the procedure to be performed. The patient was placed in left lateral decubitus position. Mouth block was placed in the patient's oral cavity. After adequate sedation medication as above, endoscope placed in the mouth and brought to the level of the second portion of duodenum. Retroflexion view performed. The patient's vital signs remained stable throughout the procedure. FINDINGS: There was noted to be a normal appearing ampulla in the second portion of duodenum. A sphincterotome was then inserted. Pancreatogram showed a normal-appearing pancreatic duct. Cholangiogram showed 2 small filling defects with a normal appearing common bile duct approximately 8 mm. Sphincterotomy performed. Stones x 2 removed with a 9-12 mm balloon. Occlusion cholangiogram with no filling defects. The patient tolerated the procedure well. No complications during the procedure. IMPRESSION: 1. Normal ampulla. 2. Normal pancreatogram. 3. Cholangiogram with filling defects x 2, but no dilation. 4. Sphincterotomy performed. 5. Balloon used to extract stones x 2. RECOMMENDATIONS: 1. Follow labs. 2. Surgery consult for laparoscopic cholecystectomy. 3. We will follow up in a.m. JOB# [id number] [facility]/NTS
[2016-06-08] MEDS: D5/0.45NS 1,000 ML IV SCH (05:46)
--- NOTE | 2016-06-08 08:16 | Fluoroscopy Report ---
FLUOROSCOPY ERCP BILIARY PANCREATIC DUCTS HISTORY: Cholelithiasis, choledocholithiasis. FINDINGS: 3 fluoroscopic spot shots of the right upper quadrant were captured by Dr. Palacio during ERCP. The images demonstrate a filling defect in the distal common bile duct consistent with a stone. The stone was removed by balloon sweep technique. Papillotomy was performed. The pancreatic duct is normal. IMPRESSION: Removal of a common bile duct stone during ERCP
[2016-06-08 08:52] LABS: Basophils % (Auto) 0.3 % (0.0-1.8); Eosinophils % (Auto) 0.8 % (0.0-4.3); Hematocrit 36.5 % (30.3-42.9); Hemoglobin 12.2 gm/dl (10.1-14.3); Mean Corpuscular HGB Conc 33 % (30-34); Mean Corpuscular Hemoglobin 29 pg (28-32); Mean Corpuscular Volume 88 fl (79-97); Platelet Count 268 K/mm3 (140-440); Red Blood Count 4.14 M/mm3 (3.65-5.03); Red Cell Distribution Width 13.9 % (13.2-15.2); White Blood Count 7.9 K/mm3 (4.5-11.0)
[2016-06-08 09:17] LABS: Alanine Aminotransferase 401 units/L (7-56); Albumin 3.6 g/dL (3.9-5); Albumin/Globulin Ratio 1.1 %; Alkaline Phosphatase 188 units/L (35-129); Anion Gap 16 mmol/L; Bilirubin,Total 1.6 mg/dL (0.1-1.2); Blood Urea Nitrogen 7 mg/dL (7-17); Calcium 8.6 mg/dL (8.4-10.2); Carbon Dioxide 22 mmol/L (22-30); Chloride 105.3 mmol/L (98-107); Glucose 120 mg/dL (65-100); Potassium 3.2 mmol/L (3.6-5.0); Sodium 140 mmol/L (137-145); Total Protein 6.8 g/dL (6.3-8.2)
[2016-06-08] MEDS: PROTONIX IV SCH (10:40)
--- NOTE | 2016-06-08 14:21 | Progress Note ---
Subjective Patient Reports: Positive: feels better, still having pain, tolerating liquids well Narrative: feels OK ERCP with pappilotomy done yesterday , Pt Need cholecystectomy will arrange for today talked to Pt , she undrstand ,, Objective Vital Signs - 12hr 06/08/16 08:00 Temperature 97.7 F Pulse Rate [ 65 Right] Respiratory 16 Rate Blood Pressure 102/50 [Right Arm] O2 Sat by Pulse 98 Oximetry - Labs 06/08/16 08:32 06/08/16 08:32 Diabetes panel 06/08/16 Range/Units 08:32 Sodium 140 (137-145) mmol/L Potassium 3.2 L (3.6-5.0) mmol/L Chloride 105.3 (98-107) mmol/L Carbon Dioxide 22 (22-30) mmol/L BUN 7 (7-17) mg/dL Creatinine 0.4 L (0.7-1.2) mg/dL Glucose 120 H (65-100) mg/dL Calcium 8.6 (8.4-10.2) mg/dL AST 177 H (5-40) units/L ALT 401 H (7-56) units/L Alkaline Phosphatase 188 H (35-129) units/L Total Protein 6.8 (6.3-8.2) g/dL Albumin 3.6 L (3.9-5) g/dL Calcium panel 06/08/16 Range/Units 08:32 Calcium 8.6 (8.4-10.2) mg/dL Albumin 3.6 L (3.9-5) g/dL Pituitary panel 06/08/16 Range/Units 08:32 Sodium 140 (137-145) mmol/L Potassium 3.2 L (3.6-5.0) mmol/L Chloride 105.3 (98-107) mmol/L Carbon Dioxide 22 (22-30) mmol/L BUN 7 (7-17) mg/dL Creatinine 0.4 L (0.7-1.2) mg/dL Glucose 120 H (65-100) mg/dL Calcium 8.6 (8.4-10.2) mg/dL Adrenal panel 06/08/16 Range/Units 08:32 Sodium 140 (137-145) mmol/L Potassium 3.2 L (3.6-5.0) mmol/L Chloride 105.3 (98-107) mmol/L Carbon Dioxide 22 (22-30) mmol/L BUN 7 (7-17) mg/dL Creatinine 0.4 L (0.7-1.2) mg/dL Glucose 120 H (65-100) mg/dL Calcium 8.6 (8.4-10.2) mg/dL Total Bilirubin 1.6 H (0.1-1.2) mg/dL AST 177 H (5-40) units/L ALT 401 H (7-56) units/L Alkaline Phosphatase 188 H (35-129) units/L Total Protein 6.8 (6.3-8.2) g/dL Albumin 3.6 L (3.9-5) g/dL
[2016-06-08] MEDS ORDERED: SUBLIMAZE ONE (14:37)
[2016-06-08] MEDS ORDERED: DIPRIVAN 10 MG/ML IV ONE (14:37)
--- NOTE | 2016-06-08 14:38 | Anesthesia Consultation ---
Anesthesia Consult and Med Hx Date of service: 06/08/16 - Airway Anesthetic Teeth Evaluation: Good ROM Head & Neck: Adequate Mental/Hyoid Distance: Adequate Mallampati Class: Class II Intubation Access Assessment: Probably Good - Pulmonary Exam CTA: Yes - Cardiac Exam Cardiac Exam: RRR - Pre-Operative Health Status ASA Pre-Surgery Classification: ASA2 Proposed Anesthetic Plan: General - Pulmonary Hx Asthma: No COPD: No Hx Pneumonia: No - Gastrointestinal Hx Gastroesophageal Reflux Disease: Yes (nausea/vomiting) - Endocrine Hx End Stage Renal Disease: No Hx Liver Disease: Yes (choledocholithiasis) - Other Systems Hx Cancer: No
--- NOTE | 2016-06-08 14:38 | Anesthesia Day of Surgery ---
Anesthesia Day of Surgery - Day of Surgery Patient Examined: Yes Patient H&P Reviewed: Yes Patient is NPO: Yes
[2016-06-08] MEDS ORDERED: XYLOCAINE MPF 2% ONE ×2 (14:39→15:12)
[2016-06-08] MEDS ORDERED: MARCAINE 0.5% 30 ML INFILTRATI ONE (15:04)
[2016-06-08] MEDS ORDERED: ZEMURON IV ONE (15:12)
[2016-06-08] MEDS ORDERED: NACL 0.9% IR ONE (15:37)
[2016-06-08] MEDS ORDERED: DILAUDID IV PRN (15:50)
[2016-06-08] MEDS ORDERED: MARCAINE 0.5% INFILTRATI ONE ×2 (16:05)
[2016-06-08] MEDS ORDERED: PHENERGAN PO PRN (16:19)
[2016-06-08] MEDS ORDERED: NORCO 5/325 PO PRN (16:19)
[2016-06-08] MEDS ORDERED: ZOFRAN ONE ×2 (16:26→17:05)
[2016-06-08] MEDS ORDERED: TORADOL ONE (16:26)
[2016-06-08] MEDS ORDERED: ROBINUL ONE (16:26)
[2016-06-08] MEDS ORDERED: NEOSTIGMINE ONE (16:26)
[2016-06-08] MEDS ORDERED: DECADRON ONE (16:26)
[2016-06-08] MEDS ORDERED: DILAUDID ONE (16:27)
--- NOTE | 2016-06-08 16:27 | Gastroenterology Progress Note ---
Assessment and Plan GI: pt stable post ERCP w/ stones removed - lap alecia per surgery - diet per surgery - will sign off, call if needed Subjective Date of service: 06/08/16 Interval history: - no GI complaints Objective - Constitutional Vitals: Temp Pulse Resp BP Pulse Ox 99.1 F 66 16 110/58 98 06/08/16 14:20 06/08/16 14:20 06/08/16 14:20 06/08/16 14:20 06/08/16 14:20 General appearance: no acute distress - EENT Eyes: PERRL - Respiratory Respiratory: bilateral: CTA - Cardiovascular Rhythm: regular Heart Sounds: Present: S1 & S2 - Gastrointestinal General gastrointestinal: Present: soft, non-tender, non-distended - Labs CBC & Chem 7: 06/08/16 08:32 06/08/16 08:32 Labs: Laboratory Results - last 24 hr 06/08/16 06/08/16 08:32 08:32 WBC 7.9 RBC 4.14 Hgb 12.2 Hct 36.5 MCV 88 MCH 29 MCHC 33 RDW 13.9 Plt Count 268 Lymph % (Auto) 19.5 [place] % (Auto) 6.3 Eos % (Auto) 0.8 Baso % (Auto) 0.3 Lymph # 1.5 [place] # 0.5 Eos # 0.1 Baso # 0.0 Seg Neutrophils % 73.1 H Seg Neutrophils # 5.8 Sodium 140 Potassium 3.2 L Chloride 105.3 Carbon Dioxide 22 Anion Gap 16 BUN 7 Creatinine 0.4 L Estimated GFR > 60 BUN/Creatinine Ratio 17.50 Glucose 120 H Calcium 8.6 Total Bilirubin 1.6 H AST 177 H ALT 401 H Alkaline Phosphatase 188 H Total Protein 6.8 Albumin 3.6 L Albumin/Globulin Ratio 1.1
[2016-06-08] MEDS ORDERED: REGLAN ONE (16:29)
[2016-06-08] MEDS ORDERED: NACL 0.9% 1000 ML 1,000 ML ONE ×2 (16:37→17:14)
[2016-06-08] MEDS ORDERED: ZOFRAN IV PRN (17:16)
[2016-06-08] MEDS ORDERED: REGLAN IV PRN (17:34)
--- NOTE | 2016-06-08 19:41 | Progress Note ---
History Interval history: s/p ERCP with sphinterotomy and 2 stones removal 06/07 s/p cholecystectomy 06/08 Hospitalist Physical - Constitutional Vitals: Temp Pulse Resp BP Pulse Ox 97.1 F L 65 16 85/51 97 06/08/16 18:30 06/08/16 18:30 06/08/16 18:30 06/08/16 18:30 06/08/16 18:30 General appearance: Present: no acute distress, well-nourished Results - Labs CBC & Chem 7: 06/08/16 08:32 06/08/16 08:32 Labs: Laboratory Last Values WBC 7.9 K/mm3 (4.5-11.0) 06/08/16 08:32 RBC 4.14 M/mm3 (3.65-5.03) 06/08/16 08:32 Hgb 12.2 gm/dl (10.1-14.3) 06/08/16 08:32 Hct 36.5 % (30.3-42.9) 06/08/16 08:32 MCV 88 fl (79-97) 06/08/16 08:32 MCH 29 pg (28-32) 06/08/16 08:32 MCHC 33 % (30-34) 06/08/16 08:32 RDW 13.9 % (13.2-15.2) 06/08/16 08:32 Plt Count 268 K/mm3 (140-440) 06/08/16 08:32 Lymph % (Auto) 19.5 % (13.4-35.0) 06/08/16 08:32 [place] % (Auto) 6.3 % (0.0-7.3) 06/08/16 08:32 Eos % (Auto) 0.8 % (0.0-4.3) 06/08/16 08:32 Baso % (Auto) 0.3 % (0.0-1.8) 06/08/16 08:32 Lymph # 1.5 K/mm3 (1.2-5.4) 06/08/16 08:32 [place] # 0.5 K/mm3 (0.0-0.8) 06/08/16 08:32 Eos # 0.1 K/mm3 (0.0-0.4) 06/08/16 08:32 Baso # 0.0 K/mm3 (0.0-0.1) 06/08/16 08:32 Seg Neutrophils % 73.1 % (40.0-70.0) H 06/08/16 08:32 Seg Neutrophils # 5.8 K/mm3 (1.8-7.7) 06/08/16 08:32 Sodium 140 mmol/L (137-145) 06/08/16 08:32 Potassium 3.2 mmol/L (3.6-5.0) L 06/08/16 08:32 Chloride 105.3 mmol/L (98-107) 06/08/16 08:32 Carbon Dioxide 22 mmol/L (22-30) 06/08/16 08:32 Anion Gap 16 mmol/L 06/08/16 08:32 BUN 7 mg/dL (7-17) 06/08/16 08:32 Creatinine 0.4 mg/dL (0.7-1.2) L 06/08/16 08:32 Estimated GFR > 60 ml/min 06/08/16 08:32 BUN/Creatinine Ratio 17.50 % 06/08/16 08:32 Glucose 120 mg/dL (65-100) H 06/08/16 08:32 Calcium 8.6 mg/dL (8.4-10.2) 06/08/16 08:32 Total Bilirubin 1.6 mg/dL (0.1-1.2) H 06/08/16 08:32 Direct Bilirubin 2.4 mg/dL (0-0.2) H 06/06/16 07:04 Indirect Bilirubin 0.6 mg/dL 06/06/16 07:04 AST 177 units/L (5-40) H 06/08/16 08:32 ALT 401 units/L (7-56) H 06/08/16 08:32 Alkaline Phosphatase 188 units/L (35-129) H 06/08/16 08:32 Total Protein 6.8 g/dL (6.3-8.2) 06/08/16 08:32 Albumin 3.6 g/dL (3.9-5) L 06/08/16 08:32 Albumin/Globulin Ratio 1.1 % 06/08/16 08:32 Lipase 36 units/L (13-60) 06/06/16 07:04
[2016-06-08 20:41] VITALS: BP 99/55
--- NOTE | 2016-06-08 22:04 | Operative Report ---
PREOPERATIVE DIAGNOSIS: Gallbladder disease with stones, acute. POSTOPERATIVE DIAGNOSIS: Gallbladder disease with stones, acute. SURGERY: Cholecystectomy, laparoscopic. ANESTHESIA: General. BLOOD LOSS: Minimal. FINDINGS: The patient had an edematous gallbladder that showed multiple stones within its lumen. The cystic duct is barely about ____ mm. We were able to isolate it and transect it between 2 byron. ANESTHESIA: General. BLOOD LOSS: Minimal. DESCRIPTION OF PROCEDURE: With the patient in supine position, prepped and draped in usual fashion. I made an incision in the right upper quadrant. With the Veress needle, I was able to do CO2 pressure of 15 for which #5 trocar was inserted. With use of the camera #5, I was able to do 3 more trocars, #5 in the mid upper abdomen to the right side and 10 in almost the midline to the right and #5 in the infraumbilical area. I was able to see the gallbladder easily that was extended. I had to decompress it, I pulled about 10 mL of clear bile. The gallbladder was held from its fundus and infundibular area. The cystic duct was then identified as well as cystic artery. These were endoclipped x 4, transected, and the gallbladder was removed in toto. I took picture of that. The area was then irrigated with sterile normal saline. I was well satisfied. Then, the gallbladder was removed via the EndoCatch through the epigastric large trocar. Then, the area again was irrigated, ascertained sustained good hemostasis, removed the trocars one by one ascertaining no bleeding from the insertion sites and closing the fascia with the use of 0 Vicryl [id number] and the skin with 4-0 Vicryl and bandage. The patient was then transferred to the recovery room in good condition. JOB# [id number] ASHLYN/MARIA ELENA
[2016-06-09] MEDS ORDERED: LEVAQUIN PO SCH (10:00)
--- NOTE | 2016-06-09 17:59 | Event Note ---
Date: 06/09/16 Patient discharged last evening by the surgeon.
== END 2016-06-08 22:30 | disposition home or self-care (01) | DRG 419 ==
LOC: ED 00:59 → 3A 11:03
PROVIDERS: ADMIT Family Medicine; ATTEND Internal Medicine
PROC: 0FC98ZZ Extirpation of Matter from Common Bile Duct, Via Natural or Artificial Opening Endoscopic (ICD-10-PCS; 2016-06-07)
PROC: 0F798ZZ Dilation of Common Bile Duct, Via Natural or Artificial Opening Endoscopic (ICD-10-PCS; 2016-06-07)
PROC: 0FT44ZZ Resection of Gallbladder, Percutaneous Endoscopic Approach (ICD-10-PCS; principal; 2016-06-08)
DX: K80.21 Calculus of gallbladder without cholecystitis with obstruction (principal); K21.9 Gastro-esophageal reflux disease without esophagitis; Z98.51 Tubal ligation status; Z88.8 Allergy status to other drugs, medicaments and biological substances
CPT/HCPCS: 36415; 74181; 74330; 76705; 78226; 80048; 80053; 80074; 81025; 83690; 85025; 88304; 90686; 96361; 96374; 96375; 96376; A9537; C1726; C9113; J1100; J1170; J1610; J1885; J1956; J2250; J2270; J2405; J2704; J2710; J2765; J3010; J7030; Q9967